=== PATIENT | male | born 1970 | race Caucasian/White ===

== ENCOUNTER → 2017-01-13 | Outpatient (CLI) | payer OTHER | LOC: RT 15:38 | PROVIDERS: ATTEND Internal Medicine Critical Care Medicine | DX: G47.30 Sleep apnea, unspecified (principal); E66.01 Morbid (severe) obesity due to excess calories; Z72.0 Tobacco use | CPT/HCPCS: 94060; 94726; 94729 ==

== ENCOUNTER 2018-12-26 12:12 | Inpatient (IN) | payer OTHER ==
[~2018-12-26] VITALS: Ht 180.3 cm; Wt 152.2 kg
[2018-12-26] VITALS (9 sets, daily range): BP systolic 128–157; BP diastolic 70–95
--- NOTE | 2018-12-26 12:24 | ED Chest Pain ---
General Stated Complaint: CP Source: patient Exam Limitations: no limitations History of Present Illness Date Seen by Provider: Dec 26, 2018 Time Seen by Provider: 12:21 Initial Comments This 48-year-old white male presents with a complaint of chest pain shortness of breath has been progressive over the last month. Patient states that any significant walking or exercise creates shortness of breath and chest pain. The patient denies previous cardiac disease. There is a significant family history of heart disease. Allergies and Home Medications Allergies Coded Allergies: No Known Drug Allergies (Unverified , 12/26/18) Patient Home Medication List Home Medication List Reviewed: Yes Review of Systems Review of Systems Constitutional: No chills, No fever EENTM: No Blurred Vision Respiratory: See HPI; Denies Cough; SOA With Exertion Cardiovascular: See HPI, Chest Pain Gastrointestinal: Denies Abdominal Pain, Denies Nausea, Denies Vomiting Genitourinary: No Symptoms Reported; Denies Burning, Denies Frequency Musculoskeletal: No back pain Skin: No change in color, No rash Psychiatric/Neurological: No Symptoms Reported Endocrine: No Symptoms Reported Hematologic/Lymphatic: No Symptoms Reported Past Gebnqch-Fobbqp-Nbdpjq Hx Past Med/Social Hx: Reviewed Nursing Past Med/Soc Hx Patient Social History Recent Foreign Travel: No Contact w/Someone Who Travel: No Physical Exam Vital Signs Vital Signs - First Documented 12/26/18 12/26/18 12:26 12:38 Temp 97.6 Pulse 74 Resp 24 B/P (MAP) 132/84 (100) Pulse Ox 97 O2 Delivery Room Air Capillary Refill : Height, Weight, BMI Height: '" Weight: lbs. oz. kg; BMI Method: General Appearance: No Apparent Distress, WD/WN, Obese HEENT: Normal ENT Inspection Neck: Normal Inspection Respiratory: Lungs Clear, Normal Breath Sounds Cardiovascular: Regular Rate, Rhythm, No Murmur Gastrointestinal: Normal Bowel Sounds, Non Tender, Soft Extremity: Normal Capillary Refill, Normal Inspection, Normal Range of Motion Neurologic/Psychiatric: Alert, Oriented x3, No Motor/Sensory Deficits, Normal Mood/Affect Skin: Normal Color, Warm/Dry; No Diaphoresis Progress/Results/Core Measures Results/Orders Lab Results Laboratory Tests Test 12/26/18 12:19 Range/Units White Blood Count 6.2 4.3-11.0 10^3/uL Red Blood Count 2.90 L 4.35-5.85 10^6/uL Hemoglobin 8.9 L 13.3-17.7 G/DL Hematocrit 27 L 40-54 % Mean Corpuscular Volume 92 80-99 FL Mean Corpuscular Hemoglobin 31 25-34 PG Mean Corpuscular Hemoglobin Concent 34 32-36 G/DL Red Cell Distribution Width 14.5 10.0-14.5 % Platelet Count 319 130-400 10^3/uL Mean Platelet Volume 9.3 7.4-10.4 FL Neutrophils (%) (Auto) 55 42-75 % Lymphocytes (%) (Auto) 28 12-44 % Monocytes (%) (Auto) 14 H 0-12 % Eosinophils (%) (Auto) 2 0-10 % Basophils (%) (Auto) 1 0-10 % Neutrophils # (Auto) 3.4 1.8-7.8 X 10^3 Lymphocytes # (Auto) 1.7 1.0-4.0 X 10^3 Monocytes # (Auto) 0.9 0.0-1.0 X 10^3 Eosinophils # (Auto) 0.2 0.0-0.3 10^3/uL Basophils # (Auto) 0.1 0.0-0.1 10^3/uL Prothrombin Time 13.3 12.2-14.7 SEC INR Comment 1.0 0.8-1.4 Activated Partial Thromboplast Time 31 24-35 SEC Sodium Level 139 135-145 MMOL/L Potassium Level 4.0 3.6-5.0 MMOL/L Chloride Level 110 H 98-107 MMOL/L Carbon Dioxide Level 22 21-32 MMOL/L Anion Gap 7 5-14 MMOL/L Blood Urea Nitrogen 24 H 7-18 MG/DL Creatinine 1.19 0.60-1.30 MG/DL Estimat Glomerular Filtration Rate > 60 BUN/Creatinine Ratio 20 Glucose Level 83 70-105 MG/DL Calcium Level 8.5 8.5-10.1 MG/DL Corrected Calcium 8.7 8.5-10.1 MG/DL Magnesium Level 2.4 1.8-2.4 MG/DL Total Bilirubin 0.3 0.1-1.0 MG/DL Aspartate Amino Transf (AST/SGOT) 26 5-34 U/L Alanine Aminotransferase (ALT/SGPT) 44 0-55 U/L Alkaline Phosphatase 87 40-136 U/L Myoglobin 55.7 10.0-92.0 NG/ML Troponin I < 0.028 <0.028 NG/ML B-Type Natriuretic Peptide 131.0 H <100.0 PG/ML Total Protein 6.9 6.4-8.2 GM/DL Albumin 3.8 3.2-4.5 GM/DL My Orders Orders - RAJAN, VÍCTOR Saez MD Ekg Tracing (12/26/18 12:13) Cbc With Automated Diff (12/26/18 12:17) Magnesium (12/26/18 12:17) Chest 1 View, Ap/Pa Only (12/26/18 12:17) Cardiac Profile 1 (12/26/18 12:17) Comprehensive Metabolic Panel (12/26/18 12:17) Myoglobin Serum (12/26/18 12:17) Protime With Inr (12/26/18 12:17) Partial Thromboplastin Time (12/26/18 12:17) O2 (12/26/18 12:17) Monitor-Rhythm Ecg Trace Only (12/26/18 12:17) Lipid Panel (12/27/18 06:00) Ed Iv/Invasive Line Start (12/26/18 12:17) BNP (12/26/18 12:17) Nitroglycerin 0.4 Mg Btl 25's (Nitrostat (12/26/18 12:30) Aspirin Chewable Tablet (Baby Aspirin Ch (12/26/18 12:30) Ns Iv 1000 Ml (Sodium Chloride 0.9%) (12/26/18 12:30) Furosemide Injection (Lasix Injection) (12/26/18 13:15) Pantoprazole Injection (Protonix Injecti (12/26/18 13:30) Medications Given in ED Current Medications Medications Dose Ordered Sig/Marianela Route Start Time Stop Time Status Last Admin Dose Admin Aspirin 324 mg ONCE ONCE PO 12/26/18 12:30 12/26/18 12:31 DC 12/26/18 12:22 324 MG Nitroglycerin 0.4 mg UD PRN SL 12/26/18 12:30 12/26/18 12:22 0.4 MG Vital Signs/I&O 12/26/18 12/26/18 12:26 12:38 Temp 97.6 Pulse 74 Resp 24 B/P (MAP) 132/84 (100) Pulse Ox 97 O2 Delivery Room Air Progress Progress Note : Time: 13:30 Progress Note Workup in the emergency department demonstrated hemoglobin 9.8. Furthermore the patient's BNP was moderately elevated approximately 140. Chest x-ray demonstrated vascular redistribution. EKG demonstrated sinus rhythm without an acute current of injury. Patient's first troponin was normal. Patient was given 40 mg of Lasix in the emergency department. After telephone consultation with Celena Noriega, and Leobardo the patient was admitted to the floor. He was placed on Protonix 40 mg IV every 24 hours. Serial troponins and EKGs were ordered. I discussed findings with the patient and his . They're agreeable to the treatment plan. Departure Communication (Admissions) Time/Spoke to Admitting Phy: 13:33 Dr. Dallas Time/Spoke to Consulting Phy: 13:33 Drs. Booth and Robert Impression Primary Impression: Anemia Qualified Codes: D64.9 - Anemia, unspecified Additional Impressions: CHF (congestive heart failure) Qualified Codes: I50.9 - Heart failure, unspecified Angina of effort Disposition: 09 ADMITTED INPATIENT Condition: Improved Admissions Decision to Admit Reason: Admit from ER (General) Decision to Admit/Date: Dec 26, 2018 Time/Decision to Admit Time: 13:35 Departure-Patient Inst. Referrals: HANNAH MORALES DO (PCP/Family) Primary Care Physician VÍCTOR TOLENTINO MD Dec 26, 2018 12:23
[2018-12-26 12:27] LABS: BASOPHILS # (AUTO) 0.1 10^3/uL (0.0-0.1); BASOPHILS % (AUTO) 1 % (0-10); EOSINOPHILS # (AUTO) 0.2 10^3/uL (0.0-0.3); EOSINOPHILS % (AUTO) 2 % (0-10); HEMATOCRIT 27 % (40-54); HEMOGLOBIN 8.9 G/DL (13.3-17.7); LYMPHOCYTES # (AUTO) 1.7 X 10^3 (1.0-4.0); LYMPHOCYTES % (AUTO) 28 % (12-44); MEAN CORPUSCULAR HEMOGLOBIN 31 PG (25-34); MEAN CORPUSCULAR HGB CONC 34 G/DL (32-36); MEAN CORPUSCULAR VOLUME 92 FL (80-99); MEAN PLATELET VOLUME 9.3 FL (7.4-10.4); MONOCYTES # (AUTO) 0.9 X 10^3 (0.0-1.0); MONOCYTES % (AUTO) 14 % (0-12); NEUTROPHILS # (AUTO) 3.4 X 10^3 (1.8-7.8); NEUTROPHILS % (AUTO) 55 % (42-75); PLATELET COUNT 319 10^3/uL (130-400); RED CELL DISTRIBUTION WIDTH 14.5 % (10.0-14.5); WHITE BLOOD COUNT 6.2 10^3/uL (4.3-11.0)
[2018-12-26] MEDS ORDERED: NS IV 1000 ML 1,000 ML IV SCH (12:30)
[2018-12-26] MEDS ORDERED: ASPIRIN 81 MG CHEW (CHILDREN'S ASA) PO ONE (12:30)
[2018-12-26] MEDS ORDERED: NITROGLYCERIN 0.4 MG SL TABS BTL 25'S SL PRN ×2 (12:30→15:00)
--- NOTE | 2018-12-26 12:38 | Diagnostic Imaging Report ---
INDICATION: Chest pain. Frontal chest obtained at 12:28 p.m. FINDINGS: Heart is borderline in size. There is central vascular congestion. There is no focal infiltrate, pneumothorax, or pleural fluid. IMPRESSION: Borderline cardiomegaly with some central vascular congestion. No anil consolidation, pneumothorax, or pleural fluid. Dictated by: Dictated on workstation # [id number]
[2018-12-26] MEDS ORDERED: METO-370 PO (12:43)
[2018-12-26] MEDS ORDERED: SIMV20TA3 PO (12:43)
[2018-12-26] MEDS ORDERED: GABA-488 PO (12:43)
[2018-12-26 12:46] LABS: PROTHROMBIN TIME PATIENT 13.3 SEC (12.2-14.7)
[2018-12-26 12:52] LABS: ALANINE AMINOTRANSFERASE 44 U/L (0-55); ALBUMIN 3.8 GM/DL (3.2-4.5); ALKALINE PHOSPHATASE 87 U/L (40-136); BILIRUBIN,TOTAL 0.3 MG/DL (0.1-1.0); BUN/CREATININE RATIO 20; CALCIUM 8.5 MG/DL (8.5-10.1); CARBON DIOXIDE 22 MMOL/L (21-32); CHLORIDE 110 MMOL/L (98-107); CREATININE SERUM 1.19 MG/DL (0.60-1.30); GFR ESTIMATED > 60; GLUCOSE 83 MG/DL (70-105); MAGNESIUM 2.4 MG/DL (1.8-2.4); SODIUM 139 MMOL/L (135-145); TOTAL PROTEIN 6.9 GM/DL (6.4-8.2)
[2018-12-26] MEDS ORDERED: FUROSEMIDE 40 MG/4 ML INJ (LASIX) IVP ONE (13:15)
[2018-12-26] MEDS ORDERED: PANTOPRAZOLE 40 MG (PROTONIX) VIAL IV ONE (13:30)
--- NOTE | 2018-12-26 14:01 | NUR ---
BURAK HERE TO SEE PT AT THIS TIME.
--- NOTE | 2018-12-26 14:46 | NUR ---
JOSE MOCK admitted to room 428-1, with an admitting diagnosis of anemia, on 12/26/18 from ER via wheel chair, accompanied by staff .JOSE MOCK introduced to surroundings, call light, bed controls, phone, TV, temperature control, lights, meal times, smoking policy, visitor policy, side rail policy, bathrooms and showers. Patient Rights given to patient in the handbook. JOSE MOCK verbalizes understanding that [facility] is not responsible for the loss or damage to any personal effects or valuables that are kept in the patients posession during their hospitalization. The following Patient Care Plans and discharge plan were discussed with the patient. JOSE MOCK verbalizes understanding of Interdisciplinary Patient Education.
[2018-12-26] MEDS ORDERED: CATHETER FLUSH 10 ML SYR IV PRN (15:15)
--- NOTE | 2018-12-26 15:20 | History & Physical-Hospitalist ---
History of Present Illness HPI/Chief Complaint Pt is a 48yoCM with a PMH of HTN, HLD, and tobaccoism who presented to the ER due to chest discomfort and lower extremity edema. He states his symptoms started a little over a month ago when he started treatment for his weight loss. He complains of dyspnea on exertion and occasional palpitations as well. He was switched from one weight loss medicine to phentermine but still had GI side effects. This week he developed lower extremity edema up to his knees. He called his primary greenhouse grower, Dr Mejia, and his PCP Dr Daniels who both recommended he be seen in the ER. Here he was found to have a negative troponin but was severely anemic. Upon further questioning he reports jet black stools for 1 week roughly 2 weeks ago. He states this has completely resolved. Source: patient Exam Limitations: no limitations Date Seen 12/26/18 Time Seen by a Provider: 14:00 Attending Physician Carter Dallas MD PCP Mane Daniels DO Referring Physician Date of Admission Dec 26, 2018 at 14:16 Home Medications & Allergies Home Medications Reviewed patient Home Medication Reconciliation performed by pharmacy medication reconciliations ammonia technician and/or nursing. Patients Allergies have been reviewed. Allergies Allergies Coded Allergies No Known Drug Allergies (Unverified12/26/18) Past Kxvedap-Alhzcm-Kamuio Hx Past Med/Social Hx: Reviewed Nursing Past Med/Soc Hx Patient Social History Marrital Status: Employed/Student: employed Alcohol Use: Occasionally Uses Recreational Drug Use: No Smoking Status: Current Someday Smoker Type Used: Cigarettes Recent Foreign Travel: No Contact w/other who traveled: No Recent Hopitalizations: No Recent Infectious Disease Expo: No Seasonal Allergies Seasonal Allergies: No Past Medical History Surgeries: Appendectomy Cardiac: High Cholesterol, Hypertension History of Blood Disorders: No Family History Reviewed Nursing Family Hx Heart Disease, CAD Under 55 Years Old, CAD Over 55 Years Old Review of Systems Constitutional: no symptoms reported EENTM: no symptoms reported Respiratory: dyspnea on exertion, short of breath Cardiovascular: chest pain, edema, palpitations Gastrointestinal: see HPI, heartburn, loss of appetite, nausea Genitourinary: no symptoms reported Musculoskeletal: no symptoms reported Skin: no symptoms reported Psychiatric/Neurological: No Symptoms Reported Physical Exam Physical Exam Vital Signs Vital Signs - First Documented 12/26/18 12/26/18 12:26 12:38 Temp 97.6 Pulse 74 Resp 24 B/P (MAP) 132/84 (100) Pulse Ox 97 O2 Delivery Room Air Capillary Refill : Less Than 3 Seconds Height, Weight, BMI Height: 5'11.00" Weight: 330lbs. oz. 149.595262ym; BMI Method:Stated General Appearance: No Apparent Distress, WD/WN, Obese HEENT: Moist Mucous Membranes; No Pale Conjunctivae (L), No Pale Conjunctivae (R), No Scleral Icterus (L), No Scleral Icterus (R) Neck: Normal Inspection, Supple; No JVD Respiratory: Lungs Clear, No Accessory Muscle Use, No Respiratory Distress Cardiovascular: Regular Rate, Rhythm, No Murmur, Normal Peripheral Pulses Gastrointestinal: Normal Bowel Sounds, Non Tender, Soft Extremity: Non Tender, No Calf Tenderness, No Pedal Edema Neurologic/Psychiatric: Alert, Oriented x3, Normal Mood/Affect Skin: Normal Color, Warm/Dry Lymphatic: No Adenopathy Results Results/Procedures Labs Laboratory Tests 12/26/18 12:19 Patient resulted labs reviewed. Assessment/Plan Admission Diagnosis Anemia concerning for GI Bleed Admission Status: Inpatient Order (span 2 midnights) Reason for Inpatient Admission: needs evaluation of anemia, possible EGD, cardiology evaluatoin Diagnosis/Problems Diagnosis/Problems (1) Anemia Status: Acute Assessment & Plan: Normocytic and likely due to GI losses from recent GI bleed FOBT now negative Surgery consulted, appreciate recs PPI Qualifiers: Anemia type: unspecified type Qualified Codes: D64.9 - Anemia, unspecified (2) Chest pain Status: Acute Assessment & Plan: Cardiology consulted, appreciate recs Dr Jones consulted, appreciate recs Troponin negative Echo ordered Pt report normal stress test with Dr Mejia in January 2018 Qualifiers: Chest pain type: unspecified Qualified Codes: R07.9 - Chest pain, unspec ified (3) Hyperlipidemia Status: Chronic Assessment & Plan: Resume home medications Qualifiers: Hyperlipidemia type: unspecified Qualified Codes: E78.5 - Hyperlipidemia, unspecified (4) Essential (primary) hypertension Assessment & Plan: Well controlled, trend Resume home meds Clinical Quality Measures AMI/AHF: ASA po Prior to arrival: CARTER Marin MD Dec 26, 2018 15:20
[2018-12-26] MEDS ORDERED: NAPR1TAB25 PO (15:45)
[2018-12-26] MEDS: NS IV 1000 ML 1,000 ML IV SCH ×2 (15:49→22:36)
--- NOTE | 2018-12-26 15:49 | NUR ---
SPOKE WITH THE PATIENT ABOUT HIS MEDICATIONS, HE LISTED WHAT HE IS TAKING, I VERIFIED HIS METOPROLOL AND SIMVASTATIN WITH THE EXT MED HX AND HE STATES HE HAS BEEN TAKING 2 ADVIL PM AT BEDTIME OTC. HE STATES HE WAS TAKING TWO DIET PILLS FROM DR. GREENE IN [place]. I CALLED THEM AND VERIFIED THEY GAVE HIM THE FOLLOWIN10-31-18 TOPAMAX 50MG BID (STOPPED 3 WEEKS AGO) 11-28-18 PHENTERMINE 30MG DAILY (STOPPED 1 WEEK AGO)
--- NOTE | 2018-12-26 18:39 | Consultation-Cardiology ---
HPI-Cardiology Cardiology Consultation: Date of Consultation 12/26/18 Time Seen by a Provider: 18:15 Date of Admission Attending Physician Lindy Dallas MD Admitting Physician Mane Daniels DO Consulting Physician CLARISSA MORALEZ MD, MA, FACP, FACC, FSCAI, CCDS HPI: Chief Complaint: CC: Chest discomfort HPI: 48 yo man who has had exertional shortness of breath for 3 weeks. Also mild, midsternal chest discomfort that comes on with mod exertion and is relieved with rest, nearly daily occurrence, w/o radiation, associated with a feeling of shortness of breath. Also, for the last 3-4 days has had gen body swelling. Denies fever or chills Reports black-colored stools for a week that ended 2 weeks ago. No N/V. Does have gen malaise Review of Systems-Cardiology Review of Systems Constitutional: As described under HPI Eyes: No vision change Ears/Nose/Throat: No ear discharge, No nasal drainage, No recent hearing loss Respiratory: As described under HPI Cardiovascular: As described under HPI Gastrointestinal: As described under HPI Genitourinary: No dysuria, No hematuria, No urine frequency changes Musculoskeletal: No back pain, No joint pain Skin: No rash, No ulcerations Psychiatric/Neurological: No focal weakness, No syncope Hematologic: other (Black stools (as described in HPI)); No bleeding abnormalities GPB-Jecdlw-Abraoy Hx Patient Social History Alcohol Use: Occasionally Uses Recreational Drug Use: No Smoking Status: Current Someday Smoker Type Used: Cigarettes Recent Foreign Travel: No Recent Infectious Disease Expo: No Physical Abuse Screen: No Sexual Abuse: No Past Medical History PMH As described under Assessment. Family Medical History Family History: Abdominal aortic aneurysm Arthritis Cancer of mouth Cardiovascular disease Cataracts Colon cancer Completed stroke Coronary thrombosis Diabetes mellitus Hypercholesterolemia Hypertension Kidney disease Myocardial infarction Respiratory disorder Seizure disorder Allergies and Home Medications Allergies Coded Allergies: No Known Drug Allergies (Unverified , 12/26/18) Home Medications Metoprolol Succinate 50 Mg Tab.er.24h, 50 MG PO HS, (Reported) Naproxen Na-Diphenhydramin HCl 1 Each Tablet, 2 TAB PO HS, (Reported) Simvastatin 20 Mg Tablet, 20 MG PO HS, (Reported) Patient Home Medication List Home Medication List Reviewed: Yes Physical Exam-Cardiology Physical Exam Vital Signs/I&O 6/1712/26/18 12/26/18 12/26/18 12:26 12:38 14:36 14:45 Temp 97.6 97.7 Pulse 74 73 73 Resp 24 16 18 B/P (MAP) 132/84 (100) 148/89 (108) 157/93 (114) Pulse Ox 97 99 100 O2 Delivery Room Air Room Air 12/26/18 12/26/18 12/26/18 12/26/18 15:05 15:15 15:29 15:41 Temp 97.7 97.7 97.8 Pulse 73 73 69 Resp 18 18 18 B/P (MAP) 157/93 157/93 135/95 (108) Pulse Ox 100 100 98 O2 Delivery Room Air Room Air Room Air Room Air 12/26/18 12/26/18 16:45 16:46 Pulse 77 84 Resp 18 B/P (MAP) 134/74 (94) Pulse Ox 99 O2 Delivery Room Air Capillary Refill : Less Than 3 Seconds Constitutional: AAO x 3, well-developed, well-nourished HEENT: PERRL, EOMI, hearing is well preserved; No xanthelasmas are seen Neck: carotid pulses are 2 + bilaterally, with good upstrokes Respiratory: No accessory muscle use; lungs clear to percussion, lungs clear to auscultation Cardiovascular: regular rate-rhythm, S1 and S2, systolic murmur (faint FRANCINE at card base) Gastrointestinal: No tender; soft; No guarding, No rebound; audible bowel sounds Extremities: No clubbing, No cyanosis; significant edema (mod, bilat, pitting edema of the legs) Neurologic/Psychiatric: oriented x 3, grossly intact, power is 5/5 both on sides Skin: No rash on exposed areas, No ulcerations on exposed areas Data Review Labs Laboratory Tests 12/26/18 12:19: White Blood Count 6.2, Red Blood Count 2.90L, Hemoglobin 8.9L, Hematocrit 27L, Mean Corpuscular Volume 92, Mean Corpuscular Hemoglobin 31, Mean Corpuscular Hemoglobin Concent 34, Red Cell Distribution Width 14.5, Platelet Count 319, Mean Platelet Volume 9.3, Neutrophils (%) (Auto) 55, Lymphocytes (%) (Auto) 28, Monocytes (%) (Auto) 14H, Eosinophils (%) (Auto) 2, Basophils (%) (Auto) 1, Neutrophils # (Auto) 3.4, Lymphocytes # (Auto) 1.7, Monocytes # (Auto) 0.9, Eosinophils # (Auto) 0.2, Basophils # (Auto) 0.1, Prothrombin Time 13.3, INR Comment 1.0, Activated Partial Thromboplast Time 31, Sodium Level 139, Potassium Level 4.0, Chloride Level 110H, Carbon Dioxide Level 22, Anion Gap 7, Blood Urea Nitrogen 24H, Creatinine 1.19, Estimat Glomerular Filtration Rate > 60, BUN/Creatinine Ratio 20, Glucose Level 83, Calcium Level 8.5, Corrected Calcium 8.7, Magnesium Level 2.4, Total Bilirubin 0.3, Aspartate Amino Transf (AST/SGOT) 26, Alanine Aminotransferase (ALT/SGPT) 44, Alkaline Phosphatase 87, Myoglobin 55.7, Troponin I < 0.028, B-Type Natriuretic Peptide 131.0H, Total Protein 6.9, Albumin 3.8 A/P-Cardiology Assessment/Admission Diagnosis Exertional chest discomfort and shortness of breath of undetermined etiology. Pt states a stress test with Dr Mejia in 2018 was normal Mild elevation of BNP, suggestive of mild CHF of undetermined etiology Blood loss anemia. GI bleed is suggested by a h/o recent melena Obesity with probable obesity-hypoventilation and KNEJI Discussion and Recomendations * Treat with diuretics * Hold ASA because of GI bleed * Agree with endoscopy for GI bleed * I discussed his case with Dr Dallas on the phone * I discussed his case with Dr Booth in person * Echo in am * Monitor labs * Further recs based on hosp course Clinical Quality Measures AMI/AHF: ASA po Prior to arrival: No DVT/VTE Risk/Contraindication: Risk Factor Score Per Nursin RFS Level Per Nursing on Admit: 2=Moderate CLARISSA MORALEZ MD [facility] CCDS Dec 26, 2018 18:39
[2018-12-26] MEDS ORDERED: ONDANSETRON 4 MG/2 ML (SDV) Z0FRAN IV PRN (18:45)
[2018-12-26] MEDS ORDERED: ANTACID SUSP 30 ML UDC (MYLANTA) PO PRN (18:45)
[2018-12-26] MEDS ORDERED: MILK OF MAGNESIA 400 MG/5 ML 30 ML UDC PO PRN (18:45)
[2018-12-26] MEDS ORDERED: PSYLLIUM POWDER (METAMUCIL) 5.8 GM PACKET PO NR (18:45)
[2018-12-26] MEDS ORDERED: PATIENT MAY USE OWN MEDS, ALL MC SCH (18:45)
[2018-12-26] MEDS: ACETAMINOPHEN 325 MG TABLET PO PRN (18:58)
--- NOTE | 2018-12-26 20:24 | Consultation (Surgery) ---
History of Present Illness History of Present Illness Patient Consulted On(alexander/time) 12/26/18 20:18 Date Seen by Provider: Dec 26, 2018 Time Seen by Provider: 13:35 History of Present Illness consult requested by Dr. Dallas for GI bleed patient is a 48-year-old male who is having exertional shortness of breath and went to the emergency department for further evaluation. Patient states that over the last few weeks is been having some dark stools. Patient states that he takes a lot of ibuprofen and Aleve p.m. on a regular basis. Patient is also was taking a diet pill which was seemingly cause more of the dark stools on a regular basis. suite patient also had complaint of stomach discomfort which resolved after stopping taking the diet pill. is shortness of breath continued to worsen. Nothing really seems to make it better. activity makes it worse. Patient states that the dark stoolshas slowed down slightly has slowed down. at this time he denies any nausea vomiting fever sweats chills or chest pain. Allergies and Home Medications Allergies Coded Allergies: No Known Drug Allergies (Unverified , 12/26/18) Home Medications Metoprolol Succinate 50 Mg Tab.er.24h, 50 MG PO HS, (Reported) Naproxen Na-Diphenhydramin HCl 1 Each Tablet, 2 TAB PO HS, (Reported) Simvastatin 20 Mg Tablet, 20 MG PO HS, (Reported) Patient Home Medication List Home Medication List Reviewed: Yes Past Tglovdf-Ddgbvy-Duepcc Hx Patient Social History Alcohol Use: Occasionally Uses Recreational Drug Use: No Smoking Status: Current Someday Smoker Type Used: Cigarettes Recent Foreign Travel: No Contact w/Someone Who Travel: No Recent Infectious Disease Expo: No Recent Hopitalizations: No Physical Abuse Screen: No Sexual Abuse: No Immunizations Up To Date PED Vaccines UTD: No Seasonal Allergies Seasonal Allergies: Yes (hay fever stuffy nose sinus concerns ) Surgeries History of Surgeries: Yes Surgeries: Appendectomy Respiratory History of Respiratory Disorde: No Cardiovascular History of Cardiac Disorders: Yes (chf notified today) Cardiac Disorders: High Cholesterol, Hypertension Neurological History of Neurological Disord: Yes Reproductive System Sexually Transmitted Disease: No HIV/AIDS: No Genitourinary History of Genitourinary Disor: No Gastrointestinal History of Gastrointestinal Di: No Musculoskeletal History of Musculoskeletal Dis: No Endocrine History of Endocrine Disorders: No HEENT History of HEENT Disorders: Yes (blurry vision, 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 Hearing Impairment: Hard of Hearing Cancer History of Cancer: No Psychosocial History of Psychiatric Problem: No Integumentary History of Skin or Integumenta: No Blood Transfusions History of Blood Disorders: No Adverse Reaction to a Blood Tr: No Family Medical History Significant Family History: Heart Disease, CAD Under 55 Years Old, CAD Over 55 Years Old Family Medial History: Abdominal aortic aneurysm Arthritis Cancer of mouth Cardiovascular disease Cataracts Colon cancer Completed stroke Coronary thrombosis Diabetes mellitus Hypercholesterolemia Hypertension Kidney disease Myocardial infarction Respiratory disorder Seizure disorder Review of Systems-General Constitutional: see HPI EENTM: no symptoms reported Respiratory: see HPI Cardiovascular: no symptoms reported Gastrointestinal: see HPI Genitourinary: no symptoms reported Musculoskeletal: no symptoms reported Skin: no symptoms reported Psychiatric/Neurological: No Symptoms Reported Physical Exam-General Problems Physical Exam Vital Signs Vital Signs - First Documented 12/26/18 12/26/18 12:26 12:38 Temp 97.6 Pulse 74 Resp 24 B/P (MAP) 132/84 (100) Pulse Ox 97 O2 Delivery Room Air Capillary Refill : Less Than 3 Seconds General Appearance: no apparent distress HEENT: PERRL/EOMI, normal ENT inspection Neck: non-tender, supple Respiratory: chest non-tender, no respiratory distress, no accessory muscle use Cardiovascular: regular rate, rhythm Gastrointestinal: non tender, soft, no organomegaly, no pulsatile mass Rectal: deferred (at this time) Back: no CVA tenderness Extremities: normal range of motion, non-tender, normal inspection Neurologic/Psychiatric: no motor/sensory deficits, alert, normal mood/affect, oriented x 3 Skin: warm/dry Lymphatic: no adenopathy Data Review Labs Laboratory Tests 12/26/18 12:19: White Blood Count 6.2, Red Blood Count 2.90L, Hemoglobin 8.9L, Hematocrit 27L, Mean Corpuscular Volume 92, Mean Corpuscular Hemoglobin 31, Mean Corpuscular Hemoglobin Concent 34, Red Cell Distribution Width 14.5, Platelet Count 319, Mean Platelet Volume 9.3, Neutrophils (%) (Auto) 55, Lymphocytes (%) (Auto) 28, Monocytes (%) (Auto) 14H, Eosinophils (%) (Auto) 2, Basophils (%) (Auto) 1, Neutrophils # (Auto) 3.4, Lymphocytes # (Auto) 1.7, Monocytes # (Auto) 0.9, Eos inophils # (Auto) 0.2, Basophils # (Auto) 0.1, Prothrombin Time 13.3, INR Comment 1.0, Activated Partial Thromboplast Time 31, Sodium Level 139, Potassium Level 4.0, Chloride Level 110H, Carbon Dioxide Level 22, Anion Gap 7, Blood Urea Nitrogen 24H, Creatinine 1.19, Estimat Glomerular Filtration Rate > 60, BUN/Creatinine Ratio 20, Glucose Level 83, Calcium Level 8.5, Corrected Calcium 8.7, Magnesium Level 2.4, Total Bilirubin 0.3, Aspartate Amino Transf (AST/SGOT) 26, Alanine Aminotransferase (ALT/SGPT) 44, Alkaline Phosphatase 87, Myoglobin 55.7, Troponin I < 0.028, B-Type Natriuretic Peptide 131.0H, Total Protein 6.9, Albumin 3.8 12/26/18 18:35: Myoglobin 63.7, Troponin I < 0.028 Assessment/Plan Assessment/Plan Assessment/Plan Anemia likely secondary to upper GI bleed melena shortness of breath with exertion likely secondary to anemia patient with recent history of significant ibuprofen and Aleve p.m. use. Likely causing an ulcer or significant gastritis. I discussed with patient at risk and benefits of having EGD performed. He understands risk and benefits and wishes to proceed. Patient nothing by mouth after midnight. Would recommend Protonix. Further recommendations pending. Clinical Quality Measures AMI/AHF: ASA po Prior to arrival: No DVT/VTE Risk/Contraindication: Risk Factor Score Per Nursin RFS Level Per Nursing on Admit: 2=Moderate CHAKA SUMNER DO Dec 26, 2018 20:24
[2018-12-27 04:10] VITALS: BP 119/70
[2018-12-27 05:20] LABS: BASOPHILS # (AUTO) 0.1 10^3/uL (0.0-0.1); BASOPHILS % (AUTO) 1 % (0-10); EOSINOPHILS # (AUTO) 0.2 10^3/uL (0.0-0.3); EOSINOPHILS % (AUTO) 3 % (0-10); HEMATOCRIT 27 % (40-54); HEMOGLOBIN 8.6 G/DL (13.3-17.7); LYMPHOCYTES # (AUTO) 1.9 X 10^3 (1.0-4.0); LYMPHOCYTES % (AUTO) 29 % (12-44); MEAN CORPUSCULAR HEMOGLOBIN 29 PG (25-34); MEAN CORPUSCULAR HGB CONC 32 G/DL (32-36); MEAN CORPUSCULAR VOLUME 91 FL (80-99); MEAN PLATELET VOLUME 9.5 FL (7.4-10.4); MONOCYTES # (AUTO) 0.8 X 10^3 (0.0-1.0); MONOCYTES % (AUTO) 12 % (0-12); NEUTROPHILS # (AUTO) 3.7 X 10^3 (1.8-7.8); NEUTROPHILS % (AUTO) 55 % (42-75); PLATELET COUNT 343 10^3/uL (130-400); RED CELL DISTRIBUTION WIDTH 14.7 % (10.0-14.5); WHITE BLOOD COUNT 6.7 10^3/uL (4.3-11.0)
[2018-12-27 05:43] LABS: ALANINE AMINOTRANSFERASE 36 U/L (0-55); ALBUMIN 3.6 GM/DL (3.2-4.5); ALKALINE PHOSPHATASE 92 U/L (40-136); BILIRUBIN,TOTAL 0.4 MG/DL (0.1-1.0); BUN/CREATININE RATIO 20; CALCIUM 8.5 MG/DL (8.5-10.1); CARBON DIOXIDE 22 MMOL/L (21-32); CHLORIDE 109 MMOL/L (98-107); CHOLESTEROL 100 MG/DL (< 200); CREATININE SERUM 1.06 MG/DL (0.60-1.30); GFR ESTIMATED > 60; GLUCOSE 85 MG/DL (70-105); HDL CHOLESTEROL 20 MG/DL (40-60); SODIUM 139 MMOL/L (135-145); TOTAL PROTEIN 6.6 GM/DL (6.4-8.2); TRIGLYCERIDES 117 MG/DL (<150); VLDL CHOLESTEROL 23 MG/DL (5-40)
[2018-12-27] MEDS: NS IV 1000 ML 1,000 ML IV SCH ×2 (07:33→17:39)
--- NOTE | 2018-12-27 07:54 | Progress Note ---
Subjective Date Seen by a Provider: Dec 27, 2018 Time Seen by a Provider: 07:52 Subjective/Events-last exam paitent doing okay. hgb slight drop. no new issues. breathing easier today. denies n/v fever sweats chills or chest pain. Objective Exam Vital Signs Date Time Temp Pulse Resp B/P (MAP) Pulse Ox O2 Delivery O2 Flow Rate FiO2 12/27/18 04:10 97.4 86 18 119/70 (86) 96 Room Air 12/27/18 01:00 75 12/26/18 23:51 97.6 82 18 131/71 (91) 97 Room Air 12/26/18 22:30 85 18 129/81 (97) 97 Room Air 12/26/18 20:00 Room Air 12/26/18 19:00 82 12/26/18 18:45 75 18 135/77 (96) 100 Room Air 12/26/18 17:45 83 18 128/70 (89) 98 Room Air 12/26/18 16:46 84 12/26/18 16:45 77 18 134/74 (94) 99 Room Air 12/26/18 15:41 97.8 69 18 135/95 (108) 98 Room Air 12/26/18 15:29 Room Air 12/26/18 15:15 97.7 73 18 157/93 100 Room Air 12/26/18 15:05 97.7 73 18 157/93 100 Room Air 12/26/18 14:45 97.7 73 18 157/93 (114) 100 Room Air 12/26/18 14:36 73 16 148/89 (108) 99 12/26/18 12:38 Room Air 12/26/18 12:26 97.6 74 24 132/84 (100) 97 I & O 12/27/18 07:00 Intake Total 2350 ml Balance 2350 ml Capillary Refill : Less Than 3 SecondsLess Than 3 Seconds General Appearance: No Apparent Distress, WD/WN, Obese HEENT: Moist Mucous Membranes; No Pale Conjunctivae (L), No Pale Conjunctivae (R), No Scleral Icterus (L), No Scleral Icterus (R) Neck: Normal Inspection, Supple; No JVD Respiratory: Chest Non Tender, No Accessory Muscle Use, No Respiratory Distress Cardiovascular: Regular Rate, Rhythm, No Murmur, Normal Peripheral Pulses Gastrointestinal: non tender, soft, no organomegaly, no pulsatile mass Extremity: Non Tender, No Calf Tenderness, No Pedal Edema Neurologic/Psychiatric: Alert, Oriented x3, Normal Mood/Affect Skin: Normal Color, Warm/Dry Lymphatic: No Adenopathy Results Lab Laboratory Tests 12/26/18 12:19: White Blood Count 6.2, Red Blood Count 2.90L, Hemoglobin 8.9L, Hematocrit 27L, Mean Corpuscular Volume 92, Mean Corpuscular Hemoglobin 31, Mean Corpuscular Hemoglobin Concent 34, Red Cell Distribution Width 14.5, Platelet Count 319, Mean Platelet Volume 9.3, Neutrophils (%) (Auto) 55, Lymphocytes (%) (Auto) 28, Monocytes (%) (Auto) 14H, Eosinophils (%) (Auto) 2, Basophils (%) (Auto) 1, Neutrophils # (Auto) 3.4, Lymphocytes # (Auto) 1.7, Monocytes # (Auto) 0.9, Eosinophils # (Auto) 0.2, Basophils # (Auto) 0.1, Prothrombin Time 13.3, INR Comment 1.0, Activated Partial Thromboplast Time 31, Sodium Level 139, Potassium Level 4.0, Chloride Level 110H, Carbon Dioxide Level 22, Anion Gap 7, Blood Urea Nitrogen 24H, Creatinine 1.19, Estimat Glomerular Filtration Rate > 60, BUN/Creatinine Ratio 20, Glucose Level 83, Calcium Level 8.5, Corrected Calcium 8.7, Magnesium Level 2.4, Total Bilirubin 0.3, Aspartate Amino Transf (AST/SGOT) 26, Alanine Aminotransferase (ALT/SGPT) 44, Alkaline Phosphatase 87, Myoglobin 55.7, Troponin I < 0.028, B-Type Natriuretic Peptide 131.0H, Total Protein 6.9, Albumin 3.8 12/26/18 18:35: Myoglobin 63.7, Troponin I < 0.028 12/27/18 05:00: White Blood Count 6.7, Red Blood Count 2.95L, Hemoglobin 8.6L, Hematocrit 27L, Mean Corpuscular Volume 91, Mean Corpuscular Hemoglobin 29, Mean Corpuscular Hemoglobin Concent 32, Red Cell Distribution Width 14.7H, Platelet Count 343, Mean Platelet Volume 9.5, Neutrophils (%) (Auto) 55, Lymphocytes (%) (Auto) 29, Monocytes (%) (Auto) 12, Eosinophils (%) (Auto) 3, Basophils (%) (Auto) 1, Neutrophils # (Auto) 3.7, Lymphocytes # (Auto) 1.9, Monocytes # (Auto) 0.8, Eosinophils # (Auto) 0.2, Basophils # (Auto) 0.1, Sodium Level 139, Potassium Level 4.0, Chloride Level 109H, Carbon Dioxide Level 22, Anion Gap 8, Blood Urea Nitrogen 21H, Creatinine 1.06, Estimat Glomerular Filtration Rate > 60, BUN/Creatinine Ratio 20, Glucose Level 85, Calcium Level 8.5, Corrected Calcium 8.8, Total Bilirubin 0.4, Aspartate Amino Transf (AST/SGOT) 21, Alanine Aminotransferase (ALT/SGPT) 36, Alkaline Phosphatase 92, Total Protein 6.6, Albumin 3.6, Triglycerides Level 117, Cholesterol Level 100, LDL Cholesterol Direct 67, VLDL Cholesterol 23, HDL Cholesterol 20L Assessment/Plan Assessment/Plan Assessment/Plan Anemia likely secondary to upper GI bleed melena shortness of breath with exertion likely secondary to anemia patient with recent history of significant ibuprofen and Aleve p.m. use. Likely causing an ulcer or significant gastritis. I discussed with patient at risk and benefits of having EGD performed. He understands risk and benefits and wishes to proceed. Patient nothing by mouth. Would recommend Protonix. EGD today. Clinical Quality Measures AMI/AHF: ASA po Prior to arrival: No DVT/VTE Risk/Contraindication: Risk Factor Score Per Nursin RFS Level Per Nursing on Admit: 2=Moderate CHAKA SUMNER DO Dec 27, 2018 07:54
--- NOTE | 2018-12-27 08:25 | Diagnostic Imaging Report ---
INDICATION: Dyspnea, congestive heart failure. COMPARISON: 12/26/2018. FINDINGS: Unchanged enlargement of cardiac silhouette. No new airspace consolidations or interstitial opacities. No pleural effusion or pneumothorax. IMPRESSION: Unchanged cardiac enlargement without features of pulmonary edema. Dictated by: Dictated on workstation # [id number]
[2018-12-27 08:56] VITALS: BP 131/72
[2018-12-27] MEDS ORDERED: ASPIRIN E.C. 81 MG (ECOTRIN) TAB PO SCH (09:00)
[2018-12-27] MEDS: meTOproloL SUCCINATE 50 MG (TOPROL XL) TAB PO SCH (09:17)
[2018-12-27] MEDS: PANTOPRAZOLE 40 MG (PROTONIX) VIAL IV SCH (09:18)
--- NOTE | 2018-12-27 10:56 | Progress Note-Hospitalist ---
Subjective HPI/CC On Admission Date Seen by Provider: Dec 27, 2018 Time Seen by Provider: 10:15 Pt is a 48yoCM with a PMH of HTN, HLD, and tobaccoism who presented to the ER due to chest discomfort and lower extremity edema. He states his symptoms started a little over a month ago when he started treatment for his weight loss. He complains of dyspnea on exertion and occasional palpitations as well. He was switched from one weight loss medicine to phentermine but still had GI side effects. This week he developed lower extremity edema up to his knees. He called his primary design tech, Dr Mejia, and his PCP Dr Daniels who both recommended he be seen in the ER. Here he was found to have a negative troponin but was severely anemic. Upon further questioning he reports jet black stools for 1 week roughly 2 weeks ago. He states this has completely resolved. Subjective/Events-last exam Pt denies any complaints. Plan for EGD today. Objective Exam Vital Signs Vital Signs Date Time Temp Pulse Resp B/P (MAP) Pulse Ox O2 Delivery O2 Flow Rate FiO2 12/27/18 13:00 92 12/27/18 11:56 97.5 20 133/77 (95) 99 Room Air Capillary Refill : Less Than 3 SecondsLess Than 3 Seconds General Appearance: No Apparent Distress, WD/WN, Obese Neck: No JVD Respiratory: Chest Non Tender, No Accessory Muscle Use, No Respiratory Distress Cardiovascular: Regular Rate, Rhythm, No Murmur, Normal Peripheral Pulses Gastrointestinal: Normal Bowel Sounds, Non Tender, Soft Neurologic/Psychiatric: Alert, Oriented x3, Normal Mood/Affect Results/Procedures Lab Laboratory Tests 12/27/18 05:00 Patient resulted labs reviewed. Assessment/Plan Assessment and Plan Assess & Plan/Chief Complaint Chest pain Diagnosis/Problems Diagnosis/Problems (1) Anemia Status: Acute Assessment & Plan: Normocytic and likely due to GI losses from recent GI bleed FOBT now negative Surgery consulted, appreciate recs PPI EGD today Qualifiers: Anemia type: unspecified type Qualified Codes: D64.9 - Anemia, unspecified (2) Chest pain Status: Acute Assessment & Plan: Cardiology consulted, appreciate recs Dr Jones consulted, appreciate recs Troponin negative Echo pending Pt report normal stress test with Dr Mejia in January 2018 Qualifiers: Chest pain type: unspecified Qualified Codes: R07.9 - Chest pain, unspecified (3) Hyperlipidemia Status: Chronic Assessment & Plan: Resume home medications Qualifiers: Hyperlipidemia type: unspecified Qualified Codes: E78.5 - Hyperlipidemia, unspecified (4) Essential (primary) hypertension Assessment & Plan: Well controlled, trend Resume home meds Clinical Quality Measures AMI/AHF: ASA po Prior to arrival: No DVT/VTE Risk/Contraindication: Risk Factor Score Per Nursin RFS Level Per Nursing on Admit: 2=Moderate CARTER REEDER MD Dec 27, 2018 10:56
--- NOTE | 2018-12-27 11:04 | Progress Note-Cardiology ---
Cardiology SOAP Progress Note Subjective: Sitting up in bed. Denies any c/o CP or palpitations. States mild to mod dyspnea with exertion. No c/o syncope or near syncope. Objective: I&O/Vital Signs 12/27/18 12/27/18 12/27/18 12/27/18 08:00 08:56 11:56 13:00 Temp 97.2 97.5 Pulse 83 79 92 Resp 20 20 B/P (MAP) 131/72 (91) 133/77 (95) Pulse Ox 96 99 O2 Delivery Room Air Room Air Room Air 12/27/18 12/27/18 12/27/18 12/27/18 15:55 17:10 17:15 17:20 Temp 98.0 Pulse 75 90 86 88 Resp 18 20 20 20 B/P (MAP) 128/77 (94) Pulse Ox 100 96 98 99 O2 Delivery Room Air OxyMask Room Air Room Air O2 Flow Rate 10 12/27/18 12/27/18 19:00 19:05 Temp 98.0 Pulse 83 86 Resp 18 B/P (MAP) 144/81 (102) Pulse Ox 97 O2 Delivery Room Air 12/26/18 23:59 Intake Total 2350 ml Balance 2350 ml Weight (Pounds): 335 Weight (Ounces): 8.0 Weight (Calculated Kilograms): 152.547065 Constitutional: AAO x 3, well-developed, well-nourished Respiratory: No accessory muscle use; lungs clear to percussion, lungs clear to auscultation Cardiovascular: regular rate-rhythm, S1 and S2, systolic murmur (faint FRANCINE at card base) Gastrointestional: No tender; soft; No guarding, No rebound; audible bowel sounds Extremities: No clubbing, No cyanosis; significant edema (mod, bilat, pitting edema of the legs) Neurologic/Psychiatric: oriented x 3, grossly intact, power is 5/5 both on sides Skin: No rash on exposed areas, No ulcerations on exposed areas Results/Procedures: Labs Laboratory Tests 12/27/18 05:00: White Blood Count 6.7, Red Blood Count 2.95L, Hemoglobin 8.6L, Hematocrit 27L, Mean Corpuscular Volume 91, Mean Corpuscular Hemoglobin 29, Mean Corpuscular Hemoglobin Concent 32, Red Cell Distribution Width 14.7H, Platelet Count 343, Mean Platelet Volume 9.5, Neutrophils (%) (Auto) 55, Lymphocytes (%) (Auto) 29, Monocytes (%) (Auto) 12, Eosinophils (%) (Auto) 3, Basophils (%) (Auto) 1, Neutrophils # (Auto) 3.7, Lymphocytes # (Auto) 1.9, Monocytes # (Auto) 0.8, Eosinophils # (Auto) 0.2, Basophils # (Auto) 0.1, Sodium Level 139, Potassium Level 4.0, Chloride Level 109H, Carbon Dioxide Level 22, Anion Gap 8, Blood Urea Nitrogen 21H, Creatinine 1.06, Estimat Glomerular Filtration Rate > 60, BUN/Creatinine Ratio 20, Glucose Level 85, Calcium Level 8.5, Corrected Calcium 8.8, Total Bilirubin 0.4, Aspartate Amino Transf (AST/SGOT) 21, Alanine Aminotransferase (ALT/SGPT) 36, Alkaline Phosphatase 92, Total Protein 6.6, Albumin 3.6, Triglycerides Level 117, Cholesterol Level 100, LDL Cholesterol Direct 67, VLDL Cholesterol 23, HDL Cholesterol 20L A/P: Assessment: Exertional chest discomfort and shortness of breath of undetermined etiology. Pt states a stress test with Dr Mejia in 2018 was normal Mild elevation of BNP, suspect sleep apnea. No clinical evidence of CHF Echo of 12/27/18: normal LVEF (60-65%), mild MR, mod dilatation of LA, normal RVSP, and no evidence of diastolic dysfunction Blood loss anemia. GI bleed is suggested by a h/o recent melena. Reports diagnosis of PUD on endoscopy today Obesity with probable obesity-hypoventilation and KENJI Plan: * Continue BB * Hold ASA because of GI bleed * Awaiting EGD (scheduled for later today) * Echo pending * Monitor labs * Further recs based on hosp course Physician Assessment Physician Assessment No cp or palp or syncope. Shortness of breath better Gen malaise better Lung: good bilat air entry Cor: reg Ext: no c/c/e A&R * As documented in our note above that I updated (italics) and as noted below * No evidence of ACS (on serial ECGs or on serial cardiac enzymes or clinically) * ASA stopped due to PUD * I discussed her CV issues with him and his spouse today * Outpatient card f/u advised Clinical Quality Measures AMI/AHF: ASA po Prior to arrival: CRISTIANE Hernandez SERVICE CONSULTANT Dec 27, 2018 11:04 CLARISSA MORALEZ MD FACP FAC CCDS Dec 27, 2018 19:51
[2018-12-27 11:56] VITALS: BP 133/77
[2018-12-27 15:55] VITALS: BP 128/77
[2018-12-27] MEDS ORDERED: LACTATED RINGERS 1,000 ML IV ONE (16:29)
--- NOTE | 2018-12-27 16:30 | NUR ---
Pt to OR for EGD via wheelchair
[2018-12-27] MEDS ORDERED: HURRICAINE EXT TUBE (BENZOCAINE) ONE (16:42)
[2018-12-27] MEDS ORDERED: proPOfol 200 MG/20 ML (DIPRIVAN) VIAL IV ONE ×2 (16:47→16:50)
[2018-12-27] MEDS ORDERED: MIDAZOLAM 2 MG/2 ML (VERSED) VIAL ONE (16:47)
[2018-12-27] MEDS ORDERED: LACTATED RINGERS 1,000 ML IV STA (16:50)
[2018-12-27] MEDS ORDERED: HURRICAINE EXT TUBE (BENZOCAINE) XX PRN (17:00)
--- NOTE | 2018-12-27 17:09 | Progress Note-Post Operative ---
Post-Operative Progess Note Surgeon (s)/Naphthalene Operator Helper (s) Surgeon CHAKA SUMNER DO Naphthalene Operator Helper: na Pre-Operative Diagnosis anemia, upper gi bleed Post-Operative Diagnosis duoduenal ulcer, gastritis c erosions, small hiatal hernia Procedure & Operative Findings Date of Procedure 12/27/18 Procedure Performed/Findings egd c biposies Anesthesia Type per mda Estimated Blood Loss Estimated blood loss (mL): scant Specimens/Packing Specimens Removed duodenal ulcer, antrum, ge CHAKA SUMNER DO Dec 27, 2018 17:09
--- NOTE | 2018-12-27 17:21 | Anesthesia-General Post-Op ---
MAC Patient Condition Mental Status/LOC: Same as Preop Cardiovascular: Satisfactory Nausea/Vomiting: Absent Respiratory: Satisfactory Pain: Controlled Complications: Absent Post Op Complications Complications None Follow Up Care/Instructions Patient Instructions None needed. Anesthesiology Discharge Order Discharge Order Patient is doing well, no complaints, stable vital signs, no apparent adverse anesthesia problems. NITZA COOK DO Dec 27, 2018 17:21
[2018-12-27 19:05] VITALS: BP 144/81
[2018-12-27] MEDS: ACETAMINOPHEN 325 MG TABLET PO PRN (20:23)
[2018-12-27] MEDS ORDERED: SIMvastatin 20 MG (ZOCOR) TAB PO SCH (21:00)
--- NOTE | 2018-12-27 21:55 | OPERATIVE REPORT ---
DATE OF SERVICE: 12/27/2018 PREOPERATIVE DIAGNOSES: Anemia, upper gastrointestinal bleed. POSTOPERATIVE DIAGNOSES: Duodenal ulcer, gastritis with erosion, small hiatal hernia. PROCEDURE: EGD with biopsy. SURGEON: Chaka Booth DO ANESTHESIA: Per MDA. ESTIMATED BLOOD LOSS: Scant. COMPLICATIONS: None. SPECIMENS: Duodenal ulcer, antrum and GE junction. INDICATIONS: The patient is a 48-year-old male who was admitted to the hospital and was found to be anemic. He has significant ibuprofen and Aleve usage. The patient was explained risks and benefits of procedure and wished to proceed with procedure. Consent was signed on the chart. DESCRIPTION OF PROCEDURE: The patient was taken to the endoscopy suite, placed in left lateral recumbent position. Timeout was performed. Scope was inserted in mouth, down the esophagus, stomach and into the duodenum without difficulty. Second portion of duodenum had normal appearance. No polyps, masses or ulcerations. The first portion of the duodenum had significant erythematous changes and superficial ulceration. Biopsy of this area was obtained. Scope was retracted back into the stomach where it was further insufflated. Gastritis with some erosions in the antrum were present. Biopsy of the antrum was obtained. Scope was retroflexed noting a small hiatal hernia. No other pathology noted. Scope was returned to its normal position, slowly withdrawn to the distal esophagus, which had no polyps, masses or ulcerations. Biopsy of the GE junction was obtained. Scope was then slowly retracted back to completely removed, noting no other pathology. The patient was taken to recovery room in stable condition. RECOMMENDATIONS: The patient is to abstain from any NSAID usage. The patient should also be on Protonix as he already is. The patient is to follow up in a couple of weeks to discuss pathology. Continue to follow hemoglobin and transfuse as needed. I would likely repeat EGD in 6 to 8 weeks after treatment. Job ID: [id number] DocumentID: [id number] Dictated Date: 12/27/2018 17:12:05 Chief Communications Officer Date: 12/27/2018 21:54:54 Dictated By: CHAKA BOOTH DO
[2018-12-27 23:15] VITALS: BP 131/79
[2018-12-28 04:00] VITALS: BP 122/73
[2018-12-28] MEDS: NS IV 1000 ML 1,000 ML IV SCH (04:44)
[2018-12-28 06:37] LABS: BASOPHILS # (AUTO) 0.1 10^3/uL (0.0-0.1); BASOPHILS % (AUTO) 1 % (0-10); EOSINOPHILS # (AUTO) 0.2 10^3/uL (0.0-0.3); EOSINOPHILS % (AUTO) 3 % (0-10); HEMATOCRIT 28 % (40-54); HEMOGLOBIN 9.3 G/DL (13.3-17.7); LYMPHOCYTES # (AUTO) 1.8 X 10^3 (1.0-4.0); LYMPHOCYTES % (AUTO) 27 % (12-44); MEAN CORPUSCULAR HEMOGLOBIN 30 PG (25-34); MEAN CORPUSCULAR HGB CONC 33 G/DL (32-36); MEAN CORPUSCULAR VOLUME 91 FL (80-99); MEAN PLATELET VOLUME 9.1 FL (7.4-10.4); MONOCYTES # (AUTO) 0.8 X 10^3 (0.0-1.0); MONOCYTES % (AUTO) 12 % (0-12); NEUTROPHILS # (AUTO) 3.9 X 10^3 (1.8-7.8); NEUTROPHILS % (AUTO) 58 % (42-75); PLATELET COUNT 342 10^3/uL (130-400); RED CELL DISTRIBUTION WIDTH 14.4 % (10.0-14.5); WHITE BLOOD COUNT 6.8 10^3/uL (4.3-11.0)
[2018-12-28 07:26] VITALS: BP 143/77
[2018-12-28] MEDS: meTOproloL SUCCINATE 50 MG (TOPROL XL) TAB PO SCH (09:00)
[2018-12-28] MEDS: PANTOPRAZOLE 40 MG (PROTONIX) VIAL IV SCH (09:00)
[2018-12-28] MEDS ORDERED: PANT40TA3 PO (12:00)
[2018-12-28 12:14] LABS: BUN/CREATININE RATIO 15; CALCIUM 8.7 MG/DL (8.5-10.1); CARBON DIOXIDE 22 MMOL/L (21-32); CHLORIDE 109 MMOL/L (98-107); CREATININE SERUM 0.96 MG/DL (0.60-1.30); GFR ESTIMATED > 60; GLUCOSE 84 MG/DL (70-105); POTASSIUM 3.9 MMOL/L (3.6-5.0); SODIUM 139 MMOL/L (135-145)
--- NOTE | 2018-12-28 13:03 | Progress Note-Cardiology ---
Cardiology SOAP Progress Note Subjective: No cp or palp or syncope or shortness of breath. Wishes to go home Objective: I&O/Vital Signs 12/28/18 12/28/18 12/28/18 12/28/18 01:00 04:00 07:26 07:30 Temp 98.9 98.2 Pulse 68 81 86 Resp 18 20 B/P (MAP) 122/73 (89) 143/77 (99) Pulse Ox 97 98 O2 Delivery Room Air Room Air 12/28/18 11:20 B/P (MAP) 12/28/18 00:00 Intake Total 1360 ml Balance 1360 ml Weight (Pounds): 335 Weight (Ounces): 8.0 Weight (Calculated Kilograms): 152.556300 Constitutional: AAO x 3, well-developed, well-nourished Respiratory: No accessory muscle use; lungs clear to percussion, lungs clear to auscultation Cardiovascular: regular rate-rhythm, S1 and S2, systolic murmur (faint FRANCINE at card base) Gastrointestional: No tender; soft; No guarding, No rebound; audible bowel sounds Extremities: No clubbing, No cyanosis; significant edema (mod, bilat, pitting edema of the legs) Neurologic/Psychiatric: oriented x 3, grossly intact, power is 5/5 both on sides Skin: No rash on exposed areas, No ulcerations on exposed areas Results/Procedures: Labs Laboratory Tests 12/28/18 06:30: White Blood Count 6.8, Red Blood Count 3.09L, Hemoglobin 9.3L, Hematocrit 28L, Mean Corpuscular Volume 91, Mean Corpuscular Hemoglobin 30, Mean Corpuscular Hemoglobin Concent 33, Red Cell Distribution Width 14.4, Platelet Count 342, Mean Platelet Volume 9.1, Neutrophils (%) (Auto) 58, Lymphocytes (%) (Auto) 27, Monocytes (%) (Auto) 12, Eosinophils (%) (Auto) 3, Basophils (%) (Auto) 1, Neutrophils # (Auto) 3.9, Lymphocytes # (Auto) 1.8, Monocytes # (Auto) 0.8, Eosinophils # (Auto) 0.2, Basophils # (Auto) 0.1, Sodium Level 139, Potassium Level 3.9, Chloride Level 109H, Carbon Dioxide Level 22, Anion Gap 8, Blood Urea Nitrogen 14, Creatinine 0.96, Estimat Glomerular Filtration Rate > 60, BUN/Creatinine Ratio 15, Glucose Level 84, Calcium Level 8.7 Laboratory Tests 12/27/18 05:00 12/28/18 06:30 A/P: Assessment: Chest/epigastric discomfort and shortness of breath, probably related to PUD and chronic GI bleed and anemia. No evidence of ACS. Pt states a stress test with Dr Mejia in 2018 was normal Mild elevation of BNP, suspect sleep apnea. No clinical evidence of CHF Echo of 12/27/18: normal LVEF (60-65%), mild MR, mod dilatation of LA, normal RVSP, and no evidence of diastolic dysfunction Blood loss anemia. Endoscopy on 12/27/18: Duodenal ulcer, gastritis with erosion, small hiatal hernia Obesity with probable obesity-hypoventilation and KENJI Plan: * No evidence of ACS (on serial ECGs or on serial cardiac enzymes or clinically) * ASA stopped due to PUD * I discussed the above with him and his spouse today * I discussed his case with Dr Dallas today * Outpatient card f/u advised Clinical Quality Measures AMI/AHF: ASA po Prior to arrival: CLARISSA Winston MD FACP FAC CCDS Dec 28, 2018 13:03
--- NOTE | 2018-12-28 14:37 | Discharge Summary-Hospitalist ---
Diagnosis/Chief Complaint Date of Admission Dec 26, 2018 at 14:16 Date of Discharge Dec 28, 2018 at 11:30 Discharge Date: Dec 28, 2018 Admission Diagnosis Anemia concerning for GI Bleed Discharge Diagnosis (1) Anemia Status: Acute Assessment & Plan: Normocytic and likely due to GI losses from recent GI bleed FOBT now negative Surgery consulted, appreciate recs PPI EGD today (2) Chest pain Status: Acute Assessment & Plan: Cardiology consulted, appreciate recs Dr Jones consulted, appreciate recs Troponin negative Echo pending Pt report normal stress test with Dr Mejia in January 2018 (3) Hyperlipidemia Status: Chronic Assessment & Plan: Resume home medications (4) Essential (primary) hypertension Assessment & Plan: Well controlled, trend Resume home meds Discharge Summary Procedures/Consulations Cardiology- Dr Jones Surgery- Dr Booth Discharge Physical Exam Allergies: Coded Allergies: No Known Drug Allergies (Unverified , 12/26/18) Vitals & I&Os Vital Signs Date Time Temp Pulse Resp B/P (MAP) Pulse Ox O2 Delivery O2 Flow Rate FiO2 12/28/18 11:20 12/28/18 07:30 Room Air 12/28/18 07:26 98.2 86 20 98 12/27/18 17:10 10 General Appearance: No Apparent Distress, WD/WN Cardiovascular: Regular Rate, Rhythm, No Murmur Neurologic/Psychiatric: Alert, Oriented x3 Hospital Course Pt presented to the ER with chest pain and was found to be anemic at 8.6 with a negative troponin and history of recent GI bleed. He was admitted for further work up and underwent EGD which showed duodenal ulcer and gastritis. He was started on a PPI. He is to follow up as an outpatient with Dr Jones and Dr Daniels. He was discharged home in stable condition and was in agreement with discharge plan. I called and discussed this hospitalization with his PCP Dr Daniels. Labs (last 24 hrs) Laboratory Tests 12/28/18 06:30: White Blood Count 6.8, Red Blood Count 3.09L, Hemoglobin 9.3L, Hematocrit 28L, M karrie Corpuscular Volume 91, Mean Corpuscular Hemoglobin 30, Mean Corpuscular Hemoglobin Concent 33, Red Cell Distribution Width 14.4, Platelet Count 342, Mean Platelet Volume 9.1, Neutrophils (%) (Auto) 58, Lymphocytes (%) (Auto) 27, Monocytes (%) (Auto) 12, Eosinophils (%) (Auto) 3, Basophils (%) (Auto) 1, Neutrophils # (Auto) 3.9, Lymphocytes # (Auto) 1.8, Monocytes # (Auto) 0.8, Eosinophils # (Auto) 0.2, Basophils # (Auto) 0.1, Sodium Level 139, Potassium Level 3.9, Chloride Level 109H, Carbon Dioxide Level 22, Anion Gap 8, Blood Urea Nitrogen 14, Creatinine 0.96, Estimat Glomerular Filtration Rate > 60, BUN/C reatinine Ratio 15, Glucose Level 84, Calcium Level 8.7 Patient resulted labs reviewed. Discussion & Recommendations Discharge Planning: >30 minutes discharge planning Discharge Home Medications: Active Scripts Active Pantoprazole Sodium 40 Mg Tablet.dr 40 Mg PO DAILY 30 Days Reported Aleve Pm Caplet (Naproxen Na-Diphenhydramin HCl) 1 Each Tablet 2 Tab PO HS Simvastatin 20 Mg Tablet 20 Mg PO HS Metoprolol Succinate 50 Mg Tab.er.24h 50 Mg PO HS Instructions to patient/family Please see electronic discharge instructions given to patient. Clinical Quality Measures AMI/AHF: ASA po Prior to arrival: No DVT/VTE Risk/Contraindication: Risk Factor Score Per Nursin RFS Level Per Nursing on Admit: 2=Moderate Problem Qualifiers (1) Anemia: Anemia type: unspecified type Qualified Codes: D64.9 - Anemia, unspecified (2) Chest pain: Chest pain type: unspecified Qualified Codes: R07.9 - Chest pain, unspecified (3) Hyperlipidemia: Hyperlipidemia type: unspecified Qualified Codes: E78.5 - Hyperlipidemia, unspecified CARTER REEDER MD Dec 28, 2018 14:37
--- NOTE | 2018-12-28 17:13 | Progress Note ---
Subjective Date Seen by a Provider: Dec 28, 2018 Time Seen by a Provider: 10:05 Subjective/Events-last exam patient doing well. hgb improved. not having any abdominal pain. shortness of breath improved. denies n/v fever sweats chills shortness of breath or chest pain at this time. found to have duodenal ulcer, and gastritis c erosions on egd Objective Exam Vital Signs Date Time Temp Pulse Resp B/P (MAP) Pulse Ox O2 Delivery O2 Flow Rate FiO2 12/28/18 11:20 12/28/18 07:30 Room Air 12/28/18 07:26 98.2 86 20 143/77 (99) 98 Room Air 12/28/18 04:00 98.9 81 18 122/73 (89) 97 12/28/18 01:00 68 12/27/18 23:15 97.1 80 18 131/79 (96) 96 Room Air 12/27/18 19:30 Room Air 12/27/18 19:05 98.0 86 18 144/81 (102) 97 Room Air 12/27/18 19:00 83 12/27/18 17:20 88 20 99 Room Air 12/27/18 17:15 86 20 98 Room Air 12/27/18 17:10 90 20 96 OxyMask 10 I & O 12/28/18 07:00 Intake Total 3360 ml Balance 3360 ml Capillary Refill : Less Than 3 SecondsLess Than 3 Seconds General Appearance: No Apparent Distress, WD/WN HEENT: PERRL/EOMI, Normal ENT Inspection Neck: Non Tender, Supple; No JVD Respiratory: Chest Non Tender, No Accessory Muscle Use, No Respiratory Distress Cardiovascular: Regular Rate, Rhythm, No Murmur Gastrointestinal: non tender, soft, no organomegaly, no pulsatile mass Extremity: Normal Capillary Refill Neurologic/Psychiatric: Alert, Oriented x3 Skin: Normal Color, Warm/Dry Lymphatic: No Adenopathy Results Lab Laboratory Tests 12/28/18 06:30: White Blood Count 6.8, Red Blood Count 3.09L, Hemoglobin 9.3L, Hematocrit 28L, Mean Corpuscular Volume 91, Mean Corpuscular Hemoglobin 30, Mean Corpuscular Hemoglobin Concent 33, Red Cell Distribution Width 14.4, Platelet Count 342, Mean Platelet Volume 9.1, Neutrophils (%) (Auto) 58, Lymphocytes (%) (Auto) 27, Monocytes (%) (Auto) 12, Eosinophils (%) (Auto) 3, Basophils (%) (Auto) 1, Neutrophils # (Auto) 3.9, Lymphocytes # (Auto) 1.8, Monocytes # (Auto) 0.8, Eosinophils # (Auto) 0.2, Basophils # (Auto) 0.1, Sodium Level 139, Potassium Level 3.9, Chloride Level 109H, Carbon Dioxide Level 22, Anion Gap 8, Blood Urea Nitrogen 14, Creatinine 0.96, Estimat Glomerular Filtration Rate > 60, BUN/Creatinine Ratio 15, Glucose Level 84, Calcium Level 8.7 Assessment/Plan Assessment/Plan Assessment/Plan Anemia from gi bleed from gastritis and ulcer likely caused by ibuprofen/aleve use melena shortness of breath with exertion likely secondary to anemia-improved patient with recent history of significant ibuprofen and Aleve p.m. use. Causing an ulcer and gastritis c erosions. I discussed with patient at risk and benefits of having EGD performed. Would recommend Protonix. Hgb improved. Okay to dc from surgical standpoint and f/u outpatient. Clinical Quality Measures AMI/AHF: ASA po Prior to arrival: No DVT/VTE Risk/Contraindication: Risk Factor Score Per Nursin RFS Level Per Nursing on Admit: 2=Moderate CHAKA SUMNER DO Dec 28, 2018 17:13
== END 2018-12-28 11:30 | disposition home or self-care (01) | DRG 378 ==
LOC: EDUNIT# 12:12 → ER 12:12 → 4TH 14:16
PROVIDERS: ADMIT Family Medicine; ATTEND Family Medicine
PROC: 0DB78ZX Excision of Stomach, Pylorus, Via Natural or Artificial Opening Endoscopic, Diagnostic (ICD-10-PCS; 2018-12-27)
PROC: 0DB98ZX Excision of Duodenum, Via Natural or Artificial Opening Endoscopic, Diagnostic (ICD-10-PCS; 2018-12-27)
PROC: 0DB48ZX Excision of Esophagogastric Junction, Via Natural or Artificial Opening Endoscopic, Diagnostic (ICD-10-PCS; principal; 2018-12-27 16:35)
DX: K29.71 Gastritis, unspecified, with bleeding (principal); T39.395A Adverse effect of other nonsteroidal anti-inflammatory drugs [NSAID], initial encounter; D50.0 Iron deficiency anemia secondary to blood loss (chronic); Z68.42 Body mass index [BMI] 45.0-49.9, adult; E66.9 Obesity, unspecified; K26.4 Chronic or unspecified duodenal ulcer with hemorrhage; K25.4 Chronic or unspecified gastric ulcer with hemorrhage; K44.9 Diaphragmatic hernia without obstruction or gangrene; I10 Essential (primary) hypertension; E78.5 Hyperlipidemia, unspecified; R07.89 Other chest pain; F17.210 Nicotine dependence, cigarettes, uncomplicated; Z82.49 Family history of ischemic heart disease and other diseases of the circulatory system
CPT/HCPCS: 36415; 71045; 80048; 80053; 80061; 83735; 83874; 83880; 84484; 85025; 85610; 85730; 93005; 93041; 93306; 96361; 96374; 96375

== ENCOUNTER 2019-01-17 08:26 | Day surgery (SDC) | payer OTHER ==
[2019-01-17] VITALS (12 sets, daily range): BP systolic 110–147; BP diastolic 60–101
[~2019-01-17] VITALS: Ht 180.3 cm; Wt 149.7 kg
[~2019-01-17 08:26] MED LIST: GABA-488 PO; METO-370 PO; NAPR1TAB25 PO; PANT40TA3 PO; SIMV20TA3 PO
[2019-01-17] MEDS ORDERED: HEParin (CATH LAB) 2,000 ML IV ONE (08:50)
[2019-01-17] MEDS ORDERED: LIDOCAINE 1% INJ 20 ML 20 ML VIAL ONE (08:50)
[2019-01-17] MEDS ORDERED: NS IV 1000 ML 1,000 ML ONE (08:50)
[2019-01-17] MEDS ORDERED: NS IV 1000 ML 1,000 ML IV SCH ×2 (08:52→14:05)
[2019-01-17 09:14] LABS: MEAN PLATELET VOLUME 10.6 FL (7.4-10.4); RED CELL DISTRIBUTION WIDTH 14.4 % (10.0-14.5); WHITE BLOOD COUNT 6.5 10^3/uL (4.3-11.0)
[2019-01-17 09:30] LABS: PROTHROMBIN TIME PATIENT 13.3 SEC (12.2-14.7)
[2019-01-17 09:41] LABS: ALANINE AMINOTRANSFERASE 27 U/L (0-55); ALBUMIN 4.3 GM/DL (3.2-4.5); ALKALINE PHOSPHATASE 93 U/L (40-136); BILIRUBIN,TOTAL 0.5 MG/DL (0.1-1.0); BUN/CREATININE RATIO 13; CALCIUM 9.5 MG/DL (8.5-10.1); CARBON DIOXIDE 23 MMOL/L (21-32); CHLORIDE 108 MMOL/L (98-107); CHOLESTEROL 133 MG/DL (< 200); CREATININE SERUM 1.05 MG/DL (0.60-1.30); GFR ESTIMATED > 60; GLUCOSE 98 MG/DL (70-105); HDL CHOLESTEROL 37 MG/DL (40-60); POTASSIUM 4.6 MMOL/L (3.6-5.0); SODIUM 140 MMOL/L (135-145); TOTAL PROTEIN 8.1 GM/DL (6.4-8.2); TRIGLYCERIDES 121 MG/DL (<150); VLDL CHOLESTEROL 24 MG/DL (5-40)
--- OUTSIDE RECORDS SUMMARY | 2019-01-17 10:20 | XMS REPORT | Continuity of Care Document ---
Author Organization Unknown Address Unknown Allergies There is no data. Medications There is no data. Problems There is no data. Procedures There is no data. Results Test Result Range CBC with Auto Diff - 01/10/19 10:38 Baso% 0.30 % 0.00-2.50 Eos 0.4 K/uL 0.0-0.7 Eos% 5.6 % 0.0-7.0 Hct 33.6 % 42.0-52.0 Hgb 10.8 g/dL 14.0-17.0 Lym 2.40 K/uL 0.60-3.40 Lym% 37.2 % 10.0-50.0 MCH 30.1 pg 27.0-31.2 MCHC 32.1 g/dL 32.0-36.0 MCV 93.6 fL 80.0-97.0 Dickinson% 10.1 % 0.0-12.0 MPV 10.2 fL 7.4-10.0 Lauren% 46.8 % 37.0-80.0 Plt 329 K/uL 150-400 RBC 3.59 M/uL 4.20-5.40 RDW 14.2 % 11.6-14.8 WBC 6.45 K/uL 5.00-10.00 Lauren 3.02 K/uL 2.00-6.90 Dickinson 0.7 K/uL 0.0-0.9 Baso 0.0 K/uL 0.0-0.2 Encounters ACCT No. Visit Date/Time Discharge Status Pt. Type Provider Facility Loc./Unit Complaint [id number] 01/10/2019 10:29:00 01/10/2019 23:59:00 DIS Outpatient Mane Daniels
[2019-01-17] MEDS ORDERED: fentaNYL INJECTION 100 MCG/2 ML AMP ONE (12:02)
[2019-01-17] MEDS ORDERED: MIDAZOLAM 5 MG/5 ML (VERSED) VIAL ONE (12:02)
--- NOTE | 2019-01-17 13:40 | NUR ---
C/O BACK HURTING ON ARRIVAL, STATES HE HAS CHRONIC BACK PAIN AND HAS DIFFICULTY LYING FLAT. PILLOWS POSITIONED UNDER LEFT SIDE OF BACK AND HIP FOR SLIGHT ELEVATION. REPORTS POSITION CHANGE IS HELPING DECREASE PAIN.
--- NOTE | 2019-01-17 13:50 | Cardiac Procedure Note-CS/ASA ---
Pre-Procedure Note Pre-Op Procedure Note H&P Reviewed The H&P was reviewed, patient examined and no changes noted. Date H&P Reviewed: Jan 17, 2019 Time H&P Reviewed: 12:10 Conscious Sedation Pre-Proced Time 12:10 ASA Score 3 For ASA 3 and 4: Consider anesthesia and medical clearance. Also, for patients with a history of failed moderate sedation consider anesthesia. Airway Lungs Heart ASA score ASA 1: a normal healthy patient ASA 2: a patient with a mild systemic disease (mid diabetes, controlled hypertension, obesity ASA 3: a patient with a severe systemic disease that limits activity (angina, COPD, prior Myocardial infarction) ASA 4: a patient with an incapacitating disease that is a constant threat to life (CHF, renal failure) ASA 5: a moribund patient not expected to survive 24 hrs. (ruptured aneurysm) ASA 6: a declared brain- patient whose organs are being harvested. For emergent operations, add the letter E after the classification Mallampati Classification Grade 3 Sedation Plan Analgesia, Amnesia, Plan communicated to team members, Discussed options with patient/fam, Discussed risks with patient/fam The patient is an appropriate candidate to undergo the planned procedure, sedation, and anesthesia. The patient immediately re-assessed prior to indication. CLARISSA MORALEZ MD FACP FAC CCDS Jan 17, 2019 13:50
[2019-01-17] MEDS ORDERED: ASPI-999 PO (13:52)
[2019-01-17] MEDS ORDERED: TRIA1CAP PO (13:53)
--- NOTE | 2019-01-17 13:55 | Discharge Inst-Cardiology ---
Discharge Inst-Cardiac Discharge Medications New Medications: Aspirin (Aspirin) 81 Mg Tab.chew 81 MG PO DAILY for 30 Days, #30 TAB 5 Refills Triamterene/Hydrochlorothiazid (Dyazide 37.5-25 Capsule) 1 Each Capsule 1 EACH PO DAILY, #30 CAP 5 Refills Continued Medications: Metoprolol Succinate (Metoprolol Succinate) 50 Mg Tab.er.24h 50 MG PO HS, TAB Pantoprazole Sodium (Pantoprazole Sodium) 40 Mg Tablet.dr 40 MG PO DAILY for 30 Days, TAB Simvastatin (Simvastatin) 20 Mg Tablet 20 MG PO HS, TAB CLARISSA MORALEZ MD FACP FAC CCDS Jan 17, 2019 13:55
--- NOTE | 2019-01-17 13:55 | Discharge Inst-Post CATH ---
Discharge Inst-CATH/EP Post Cardiac Cath/EP D/C Inst Follow Up/Plan Follow up at Dr Jones's in 2 weeks ACTIVITY * Go Home directly and rest. * Limit activity of the leg (or wrist if it was used) for 7 days including aerobics, swimming, jogging, bicycling, etc. * Restrict stair-climbing for 7 days if possible, if not, climb up with your non-cath leg, then bring together on the same step. * Avoid lifting, pushing, pulling or excessive movement of the affected extremity for 7 days. * Customary sexual activity may be resumed after 2 days-use caution not to use a position that strains or causes pain to the affected extremity. * No driving for 24 hours. * NO SMOKING. * Avoid straining for bowel movements for 7 days. * Gentle walking on level ground is allowed. * Returning to work will depend on the type of procedure and the results. Your doctor will discuss this with you. CALL YOUR DOCTOR FOR ANY OF THE FOLLOWING: *If bleeding from the puncture site occurs- Apply gentle pressure to site with clean cloth and call your doctor or EMS. * If a knot or lump forms under the skin, increases in size, or causes pain. * If bruising appears to be worsening or moving further down your leg instead of disappearing. * Temperature above 101 F. CARE OF YOUR GROIN INCISION; * Bruising or purple discoloration of the skin near the puncture site is common. * You may shower only, no bathtub bathing for 5 days. Be careful to avoid slipping as your leg may feel stiff. * If a closure device was used on your femoral artery, please see the attached guide regarding care of the device and your leg. * Leave dressing on FOR 24 hours. CARE OF YOUR WRIST INCISION; * Bruising or purple discoloration of the skin near the puncture site is common. * You may shower. * DO NOT submerge wrist. * Leave dressing on FOR 24 hours. CLARISSA JONES MD [facility] FAC CCDS Jan 17, 2019 13:55
[2019-01-17] MEDS ORDERED: PATIENT MAY USE OWN MEDS, ALL PO SCH (14:15)
--- NOTE | 2019-01-17 16:11 | CARDIAC CATHETERIZATION ---
DATE OF SERVICE: 01/17/2019 CARDIAC CATHETERIZATION REPORT The patient is a 48-year-old gentleman who has been having exertional chest discomfort and shortness of breath suggestive of new onset of angina. Due to continuing symptoms and coronary artery disease risk factors, cardiac catheterization was recommended and carried out today after having obtained an informed consent. PROCEDURE: He was brought to the cardiac catheterization laboratory in a fasting state. Right groin was prepared and draped in the usual sterile fashion. Lidocaine 1% with local anesthesia. Modified Seldinger technique was used to advance a 5-Mosotho sheath in the right femoral artery, 5-Mosotho JL4 catheter for left coronary angiography, 5-Mosotho JR4 catheter for right coronary angiography, 5-Mosotho pigtail catheter was used for left heart catheterization and left ventricular angiography. At the end of the procedure Mynx was used to achieve hemostasis. Angiography of the right femoral artery had been carried out through the sheath at the beginning of the procedure. HEMODYNAMICS: Left ventricular end-diastolic pressure following coronary angiography was 28 mmHg. There is no significant pressure gradient on pullback across the aortic valve. Ascending aortic pressure 165/106 with a mean 130 mmHg. CORONARY ANGIOGRAPHY: Left main coronary artery is free of significant disease. Left anterior descending and left circumflex arteries have mild diffuse plaque with stenosis of less than 30%. The right coronary artery has diffuse mild plaques with stenoses of less than 40%. LEFT VENTRICULAR ANGIOGRAPHY: Left ventricular angiography was carried out in the right anterior oblique projection. Global left ventricular systolic function was normal. Left ventricular ejection fraction is 50 to 55%. CONCLUSIONS: 1. Mild coronary artery disease. 2. Normal global left ventricular systolic function with an ejection fraction of 50 to 55%. 3. Elevated left ventricular end-diastolic pressure. DISCUSSION AND RECOMMENDATIONS: Based on results of the study, it appears appropriate to continue a conservative approach. Risk factor modification has been reviewed. Outpatient followup is advised. We are adding low dose aspirin and diuretics to the regimen and have advised f/u on labs (BMP and magnesium level). Job ID: [id number] DocumentID: [id number] Dictated Date: 01/17/2019 13:25:02 Web[employer] Commerce Architect Date: 01/17/2019 16:11:26 Dictated By: CLARISSA MORALEZ MD, MA, FACP, FACC, MTDD
== END 2019-01-17 16:45 | disposition home or self-care (01) ==
LOC: CATH 08:26 → SDC 13:38 → CATH 16:45
PROVIDERS: ATTEND Internal Medicine Cardiovascular Disease
DX: I25.10 Atherosclerotic heart disease of native coronary artery without angina pectoris (principal); K27.9 Peptic ulcer, site unspecified, unspecified as acute or chronic, without hemorrhage or perforation; K29.70 Gastritis, unspecified, without bleeding; F17.210 Nicotine dependence, cigarettes, uncomplicated; Z79.899 Other long term (current) drug therapy; D50.9 Iron deficiency anemia, unspecified; E66.2 Morbid (severe) obesity with alveolar hypoventilation; Z68.42 Body mass index [BMI] 45.0-49.9, adult
CPT/HCPCS: 36415; 80053; 80061; 85027; 85610; 85730; 87081; 93458

== ENCOUNTER → 2019-02-07 | Outpatient (CLI) | payer OTHER ==
[~2019-02-07] MED LIST changes: +ASPI-999 PO; +TRIA1CAP PO
[2019-02-07 15:01] LABS: CALCIUM 9.9 MG/DL (8.5-10.1); CREATININE SERUM 1.65 MG/DL (0.60-1.30); MAGNESIUM 2.5 MG/DL (1.8-2.4); POTASSIUM 3.8 MMOL/L (3.6-5.0)
== END ==
LOC: LAB 14:34
PROVIDERS: ATTEND Internal Medicine Cardiovascular Disease
DX: I10 Essential (primary) hypertension (principal)
CPT/HCPCS: 36415; 80048; 83735

== ENCOUNTER 2020-05-08 18:28 | Emergency (ER) | payer BC, OTHER ==
[~2020-05-08] VITALS: Ht 180.3 cm; Wt 145.4 kg
[~2020-05-08 18:28] MED LIST changes: -METO-370 PO; +METO50TA7 PO; -PANT40TA3 PO; +PANT40TA52 PO; +SIMV20TA26 PO; -SIMV20TA3 PO
[2020-05-08 18:46] VITALS: BP 172/92
[2020-05-08] MEDS ORDERED: NAPR-1071 PO (18:54)
[2020-05-08] MEDS ORDERED: METH-313 PO (18:54)
--- NOTE | 2020-05-08 18:54 | ED General ---
General Stated Complaint: BACK PAIN Source of Information: Patient Exam Limitations: No Limitations History of Present Illness Date Seen by Provider: May 08, 2020 Time Seen by Provider: 18:51 Initial Comments To ER with reports of severe low back pain that radiates all the way down the right leg. No loss of bowel or bladder control no loss of sensation of genitals. No fevers or chills no history of IV drug use no history of cancer. He has a history of some low back pain, follows with Dr. Alvarez and is scheduled to get an injection of steroids on Wednesday. Timing/Duration: 1-2 Days Severity: Moderate Allergies and Home Medications Allergies Coded Allergies: No Known Drug Allergies (Unverified , 12/26/18) Home Medications Aspirin 81 Mg Tab.chew, 81 MG PO DAILY Prescribed by: CLARISSA MORALEZ on 01/17/19 1352 Metoprolol Succinate 50 Mg Tab.er.24h, 50 MG PO HS, (Reported) Pantoprazole Sodium 40 Mg Tablet.dr, 40 MG PO DAILY Prescribed by: CARTER REEDER on 12/28/18 1200 Simvastatin 20 Mg Tablet, 20 MG PO HS, (Reported) Triamterene/Hydrochlorothiazid 1 Each Capsule, 1 EACH PO DAILY Prescribed by: CLARISSA MORALEZ on 01/17/19 1353 Patient Home Medication List Home Medication List Reviewed: Yes Review of Systems Review of Systems Constitutional: see HPI EENTM: see HPI Respiratory: no symptoms reported Cardiovascular: no symptoms reported Genitourinary: no symptoms reported Musculoskeletal: see HPI, back pain Skin: no symptoms reported Psychiatric/Neurological: No Symptoms Reported Hematologic/Lymphatic: No Symptoms Reported Immunological/Allergic: no symptoms reported Past Pdxlqqn-Oeasas-Gccglz Hx Patient Social History Alcohol Beverage of Choice: Beer, [place]y Type Used: Cigarettes Recent Foreign Travel: No Contact w/Someone Who Travel: No Recent Hopitalizations: No Immunizations Up To Date PED Vaccines UTD: No Seasonal Allergies Seasonal Allergies: Yes (hay fever stuffy nose sinus concerns ) Past Medical History Surgeries: Yes Appendectomy Respiratory: Yes Sleep Apnea Currently Using CPAP: Yes (sleep apnea ) Currently Using BIPAP: No Cardiac: Yes High Cholesterol, Hypertension Neurological: Yes Sexually Transmitted Disease: No HIV/AIDS: No Genitourinary: No Gastrointestinal: Yes Ulcer Musculoskeletal: No Endocrine: No HEENT: Yes (blurry vision, weired taste mouth (metalic)) Tinnitis Loss of Vision: Bilateral Hearing Impairment: Hard of Hearing Cancer: No Did You Recieve Any Treatments: No Psychosocial: No Integumentary: No Blood Disorders: No Adverse Reaction/Blood Tranf: No Family Medical History Abdominal aortic aneurysm Arthritis Cancer of mouth Cardiovascular disease Cataracts Colon cancer Completed stroke Coronary thrombosis Diabetes mellitus Hypercholesterolemia Hypertension Kidney disease Myocardial infarction Respiratory disorder Seizure disorder Heart Disease, CAD Under 55 Years Old, CAD Over 55 Years Old Physical Exam Vital Signs Capillary Refill : Height, Weight, BMI Height: 5'11.00" Weight: 330lbs. 0.0oz. 149.000980bv; 46.0 BMI Method:Stated General Appearance: No Apparent Distress, WD/WN, Obese Eyes: Bilateral Eye Normal Inspection, Bilateral Eye PERRL, Bilateral Eye EOMI Respiratory: No Accessory Muscle Use, No Respiratory Distress Cardiovascular: Regular Rate, Rhythm, Normal Peripheral Pulses Gastrointestinal: Normal Bowel Sounds, Non Tender, Soft Neurologic/Psychiatric: Alert, Oriented x3 Skin: Normal Color, Warm/Dry Progress/Results/Core Measures Suspected Sepsis SIRS Temperature: Pulse: Respiratory Rate: Blood Pressure / Mean: Results/Orders Vital Signs/I&O Capillary Refill : Departure Communication (Admissions) He is ambulatory to room 4 without limp or use of assistive device. Impression Primary Impression: Lumbar radiculopathy Disposition: 01 HOME, SELF-CARE Condition: Stable Departure-Patient Inst. Decision time for Depature: 18:52 Referrals: HANNAH MORALES DO (PCP/Family) Primary Care Physician Patient Instructions: Radiculopathy (DC) Add. Discharge Instructions: 1. Return to ER for any concerns 2. Follow-up with your regular doctor as scheduled. Scripts Methocarbamol (Robaxin-750) 750 Mg Tablet 750 MG PO Q4H PRN for PAIN-MODERATE (5-7), #20 TAB Prov: EVELINA CAIL APRN 05/08/20 Naproxen (Naprosyn) 500 Mg Tablet 500 MG PO BID PRN for PAIN-MILD (1-4), #30 TAB 0 Refills Prov: EVELINA CALI APRN 05/08/20 Work/School Note: Work Release Form Date Seen in the Emergency Department: May 08, 2020 Return to Work: May 11, 2020 EVELINA CALI APRN May 08, 2020 18:54
[2020-05-08] MEDS ORDERED: KETOROLAC 60 MG/2 ML VIAL IM ONE (19:00)
[2020-05-08] MEDS ORDERED: ORPHENADRINE 60 MG/2 ML (NORFLEX) AMP (ED ONLY) IM ONE (19:00)
[2020-05-08] MEDS ORDERED: RX-HYDROCODONE/APAP 5/325 MG #4 TAB PK PO PRN (19:00)
== END 2020-05-08 19:05 | disposition home or self-care (01) ==
LOC: EDUNIT# 18:28 → ER 18:29
DX: M54.16 Radiculopathy, lumbar region (principal); I10 Essential (primary) hypertension; E78.00 Pure hypercholesterolemia, unspecified; Z79.82 Long term (current) use of aspirin; Z80.0 Family history of malignant neoplasm of digestive organs; Z80.8 Family history of malignant neoplasm of other organs or systems; Z83.3 Family history of diabetes mellitus
CPT/HCPCS: 99284

== ENCOUNTER → 2021-03-18 | Outpatient (CLI) | payer BC ==
[~2021-03-18] VITALS: Ht 180 cm; Wt 149.0 kg
[~2021-03-18] MED LIST changes: +CATHETER FLUSH 10 ML SYR IV PRN; +METH-313 PO; +NAPR-1071 PO; +REGADENOSON 0.4 MG/5 ML SYR (LEXISCAN) IV ONE
[2021-03-18 08:52] VITALS: BP 139/93
--- NOTE | 2021-03-18 13:29 | STRESS TEST ---
DATE OF SERVICE: 03/18/2021 RESTING AND POST REGADENOSON TECHNETIUM-99M TETROFOSMIN SPECT CT IMAGING ORDERING PHYSICIAN: Dr. Jones. PRIMARY PHYSICIAN: Dr. Daniels. CLINICAL DIAGNOSIS: Chest discomfort. Baseline images were carried out after injection of 10.08 mCi of technetium-99m Tetrofosmin. This was followed by 0.4 mg regadenoson and 29.7 mCi of technetium-99m Tetrofosmin for stress imaging. The electrocardiogram showed sinus rhythm and sinus tachycardia during the study. It did not change significantly with regadenoson infusion. The patient noted some chest tightness and shortness of breath following regadenoson infusion, which resolved in a few minutes. Review of images at rest and following stress does not indicate any distinct perfusion defects consistent with any significant myocardial ischemia or infarction. Gated images show well preserved global left ventricular systolic function without distinct regional wall motion abnormality. Left ventricular ejection fraction is calculated to be 55%. Left ventricular end diastolic volume 107 mL. TID is absent (0.98). CONCLUSIONS: 1. Mild cardiomegaly. 2. No evidence of significant myocardial ischemia or infarction. 3. Well preserved global left ventricular systolic function with an ejection fraction of 55% and without any distinct regional wall motion abnormalities. Job ID: [id number] DocumentID: [id number] Dictated Date: 03/18/2021 13:20:19 Magnetic Prospector Date: 03/18/2021 13:28:51 Dictated By: CLARISSA JONES MD, MA, FACP, FACC,
== END ==
LOC: CARD 07:45
PROVIDERS: ATTEND Internal Medicine Cardiovascular Disease
DX: R07.89 Other chest pain (principal); I51.7 Cardiomegaly
CPT/HCPCS: 78452; 93017; A9502

== ENCOUNTER → 2023-04-29 | Outpatient (CLI) | payer BC ==
[~2023-04-29] MED LIST changes: -CATHETER FLUSH 10 ML SYR IV PRN; +CATHETER FLUSH 10 ML SYR IVP PRN; -REGADENOSON 0.4 MG/5 ML SYR (LEXISCAN) IV ONE; +REGADENOSON 0.4 MG/5 ML SYR IV ONE
[2023-04-29 08:37] VITALS: BP 139/73
--- NOTE | 2023-04-29 19:25 | STRESS TEST ---
DATE OF SERVICE: 04/29/2023 RESTING AND POST REGADENOSON TECHNETIUM-99M TETROFOSMIN SPECT CT IMAGING CLINICAL DIAGNOSIS: Chest discomfort. ORDERING PHYSICIAN: Makenzie Resendiz APRN. PRIMARY PHYSICIAN: Mane Daniels DO Baseline images were carried out after injection of 10.48 mCi of technetium-99m tetrofosmin. This was followed by 0.4 mg regadenoson and 32.2 mCi of technetium-99m tetrofosmin for stress imaging. The electrocardiogram showed sinus rhythm at baseline. It did not change significantly with regadenoson infusion. Review of images at rest and following stress does not indicate any distinct perfusion defects consistent with significant myocardial ischemia or infarction. Tracer uptake appears to be patchy both at rest and following regadenoson infusion. Gated images show well preserved global left ventricular systolic function. Left ventricular ejection fraction is 49%. There does not appear to be distinct regional wall motion abnormality. CONCLUSIONS: 1. No evidence of significant myocardial ischemia or infarction. 2. Well preserved global left ventricular systolic function with ejection fraction of 49% and without distinct regional wall motion abnormality. Job ID: [id number] DocumentID: [id number] Dictated Date: 04/29/2023 16:32:24 [employer] Date: 04/29/2023 19:23:00 Dictated By: CLARISSA MORALEZ MD; ANT; FACP; FACC;
== END ==
LOC: CARD 07:02
PROVIDERS: ATTEND Nurse Practitioner Family
DX: I34.0 Nonrheumatic mitral (valve) insufficiency (principal)
CPT/HCPCS: 78452; 93017; A9502; C8929; 93306